=== PATIENT | female | born 1970 | race Caucasian/White ===

== ENCOUNTER 2017-03-17 10:52 | Day surgery (SDC) | payer BC, OTHER ==
--- NOTE | 2017-03-17 11:25 | PDANEPAE ---
ANE Past Medical History - Cardiovascular History Hx Hypertension: Yes ANE Patient History - Allergies Allergies/Adverse Reactions: No Known Allergies Allergy (Unverified 03/07/14 10:24) ANE Physical Exam - Airway Mallampati Score: Class 2 Mouth exam: normal dental/mouth exam - Pulmonary Pulmonary: no respiratory distress - Cardiovascular Cardiovascular: regular rate and rhythym - ASA Status ASA Status: II
[2017-03-17] MEDS ORDERED: BUPIVACAINE 0.5% 30 ML SDV ONE (11:26)
[2017-03-17] MEDS ORDERED: ROPIVACAINE HCL 20 MG/10 ML INJ EP ONE (11:26)
[2017-03-17] MEDS ORDERED: LIDOCAINE 1% 300 MG/30 ML SDV ONE (11:26)
[2017-03-17] MEDS ORDERED: BACITRACIN 50,000 UNITS/10 ML SYR IRR ONE (11:27)
[2017-03-17 11:38] VITALS: O2SAT 97
[2017-03-17] MEDS ORDERED: LR 1,000 ML IV ONE (11:57)
--- NOTE | 2017-03-17 12:10 | PDHPUP ---
History & Physical Update H&P update statement: This history and physical update is based on an assessment of the patient which was completed after admission or registration (within 24 hours), but prior to the surgery/procedure. H&P update: no change in patient's condition since H&P completed (no changes since her preop visit)
[2017-03-17] MEDS ORDERED: MIDAZOLAM 2 MG/2 ML VIAL ONE (12:14)
[2017-03-17] MEDS ORDERED: fentaNYL 100 MCG/2 ML INJ ONE (12:15)
[2017-03-17] MEDS ORDERED: PROPOFOL/EMULSION 500 MG/50 ML BOTTLE IV ONE (12:15)
[2017-03-17] MEDS ORDERED: LR 500 ML IV PRN (13:34)
[2017-03-17] MEDS ORDERED: NALOXONE HCL 0.4 MG/ML INJ IVP PRN (13:34)
[2017-03-17] MEDS ORDERED: fentaNYL 100 MCG/2 ML INJ IVP PRN (13:34)
[2017-03-17] MEDS ORDERED: MEPERIDINE 25 MG/ML SYR IVP PRN (13:34)
[2017-03-17] MEDS ORDERED: ONDANSETRON 4 MG/2 ML VIAL IVP PRN (13:34)
[2017-03-17] MEDS ORDERED: PROMETHAZINE HCL 25 MG/ML INJ IVP PRN (13:34)
[2017-03-17] MEDS ORDERED: KETOROLAC 30 MG/1 ML SDV ONE (13:35)
--- NOTE | 2017-03-17 13:36 | POSTOPPROG ---
Post Op Note Date of Operation: 03/17/17 Surgeon: Korin Oconnor Professional Nursing Assistant: no Anesthesiologist: Arielle Lara MD Anesthesia: IV Sedation Pre-op Diagnosis: Complication internal fixation first metatarsal Right foot Post-op Diagnosis: irritation/complication internal fixation first metatarsal Right foot Indication: pain Procedure: removal of two screws first metatarsal right foot Findings: synovitic tissue Inf/Abcess present in the surg proc area at time of surgery?: No Depth: Deep Incisional (Fascial) EBL: Minimal Complications: none.
[2017-03-17] MEDS ORDERED: KETOROLAC 30 MG/1 ML SDV IVP ONE (13:39)
--- NOTE | 2017-03-17 13:40 | POSTANESTH ---
Post Anesthetic Evaluation Cardiovascular Status: Normal, Stable Respiratory Status: Normal, Stable Level of Consciousness/Mental Status: Can Participate in Eval Pain Control: Adequate, Prn Tx Ordered Nausea/Vomiting Control: Adequate, Prn Tx Ordered Complications Possibly Related to Anesthesia: None Noted
[2017-03-17 13:57] VITALS: RESP 16
[2017-03-17 14:09] VITALS: TEMP 97.7
[2017-03-17 14:19] VITALS: BP 122/90; PULSE 66
--- NOTE | 2017-03-18 04:41 | GOP ---
[f rep st] OPERATIVE REPORT DATE OF OPERATION: SURGEON: Korin Oconnor DPM ANESTHESIA: MAC. ANESTHESIOLOGIST: Cody Lara MD. PREOPERATIVE DIAGNOSIS: Complication, internal fixation, 1st metatarsal, right foot. POSTOPERATIVE DIAGNOSIS: Complication, internal fixation, 1st metatarsal, right foot. PROCEDURE PERFORMED: 1. Removal of hardwar. Deep internal fixation, 2 screws, 1st metatarsal, right foot. FINDINGS: SPECIMENS: No specimens sent to Pathology. There were no additional injectables. She has a CryoCuff at home, was fitted with an ice pack to take home. She is to follow up at our office in 2 days for a wound check. ESTIMATED BLOOD LOSS: Minimum, less than 3 cc. INDICATIONS: Pain, right foot. DESCRIPTION OF PROCEDURE: Patient was brought into the operating room, placed on the operating table in a supine position. Intravenous sedation administered by the anesthesiologist. A peripheral nerve block obtained utilizing total of 8 cc of 1:1 mix of 0.5% Marcaine plain and 1% lidocaine plain. The lower extremity was prepped and draped in the usual sterile manner. After the limb had been elevated and exsanguinated with an Esmarch bandage, an ankle tourniquet was inflated to 220 mmHg, and the procedure was begun. Webril padding was utilized under the ankle cuff. Attention directed towards the dorsal proximal one-third aspect of the 1st metatarsal where screw heads are palpable. A 2 cm incision was created. Incision was carefully deepened with care of neurovascular structures, then clamped and cauterized bleeders. Incision was deepened through the periosteum, and the more dorsal screw was identified. Dorsal portion very exposed, plantar portion imbedded within the bone. Utilizing a bullet drill bit, bone was resected. Utilizing Grandin elevator, bone was removed around the edges of the screw head. Once freed, the screw was removed without complications. Then, the more medial screw was identified and resected in the same way. Its more plantar portion was imbedded. Dorsal aspect very exposed in the soft tissue. Once hardware was removed, the ankle tourniquet was released, and a normal hyperemic response was noted to all digits. The wound was copiously irrigated with bacitracin irrigation solution. Bleeders cauterized. Periosteal closure achieved with 3-0 Vicryl, subcutaneous closure with 4-0 Monocryl, and the skin was closed with 4-0 Prolene in a horizontal mattress and simple interrupted suture manner. Dressings included Xeroform, 4x4s, fluffs, Paty, reinforced with tape and an Chemo bandage. The patient tolerated the procedure and anesthesia well, and left the operating room with vital signs stable and vascular status intact to all digits. PROGNOSIS: Good. /[id number]/MODL MTDD
== END 2017-03-17 14:50 | disposition home or self-care (01) ==
LOC: FSGY 10:52
PROVIDERS: ATTEND Podiatrist
PROC: 0QP Lower Bones, Removal (ICD-10-PCS; principal; 2017-03-17 12:15)
DX: T84.84XA Pain due to internal orthopedic prosthetic devices, implants and grafts, initial encounter (principal); M79.671 Pain in right foot; Z87.891 Personal history of nicotine dependence
CPT/HCPCS: J1885; J2250; J2704; J2795; J3010